=== PATIENT | male | born 1955 | race African-American/Black ===

== ENCOUNTER 2022-08-31 11:13 | Inpatient (IN) ==
[2022-08-31] MEDS ORDERED: LACTATED RINGERS 1,000 ML IV ONE (11:44)
[2022-08-31 12:08] LABS: Basophils # 0.1 10*3/uL (0.0-0.2); Basophils % 0.2 % (0.0-0.8); Hematocrit 39.4 VOL% (42.0-52.0); Hemoglobin 12.4 GM/DL (14.0-18.0); Immature Granulocytes % 7.8 %; Immature Granulocytes Absolute 1.61 #; Lymphocytes # 0.4 10*3/uL (1.4-4.0); Mean Corpuscular HGB Conc 31.5 GM/DL (32-36); Mean Platelet Volume 10.2 FL (9.6-12.0); Monocytes # 0.6 10*3/uL (0.11-0.8); Monocytes % 2.8 % (1.7-12.7); Neutrophils % 87.2 % (38.7-73.9); Platelet Count 159 T/CUMM (130-400); Red Blood Count 5.47 MC/CUMM (3.8-5.5); Red Cell Distribution Width 15.4 % (9.3-17.3); White Blood Count 20.8 T/CUMM (4-12)
[2022-08-31 12:16] LABS: Calcium 8.4 MG/DL (8.5-10.1); Osmolality,Calculated 295.4 MOS/KG (273-304); Total Protein 6.2 G/DL (6.4-8.2)
[2022-08-31] MEDS ORDERED: SODIUM CHLORIDE 0.9% 3,000 ML IV ONE (12:31)
[2022-08-31 13:01] LABS: Band Neutrophils 18 % (0-10); Eosinophils 1 % (0-10); Lymphocytes 1 % (20-55); Metamyelocytes 1 %; Total Cells Counted 100
[2022-08-31 13:06] LABS: Burr Cells Slight; Hypochromia 1+; Microcytosis 1+
[2022-08-31 13:07] LABS: Platelet Estimate Normal
[2022-08-31] MEDS ORDERED: PIPERACILLIN/TAZOBACTAM 3,375 MG in SODIUM CHLORIDE 0.9% 100 ML IV STA (13:47)
[2022-08-31 14:01] LABS: Glucose,Urine (UA) 100 mg/dL (Negative); Mucus,Urine Few /LPF (Occasional); Protein,Urine >=300 mg/dL (Negative); RBC,Urine 7 /HPF (0-4); Urine Appearance Cloudy (Clear); Urine Color Yellow (Yellow); Urine Specific Gravity >= 1.030 (1.001-1.035); Urine pH 5.5 (4.5-8.0)
[2022-08-31 14:02] LABS: Bilirubin,Urine Moderate mg/dL (Negative); Blood, Urine Large mg/dL (Negative); Ketones,Urine 15 mg/dL (Negative); Nitrite,Urine Negative (Negative)
[2022-08-31 14:31] LABS: Barbiturates Screen,Urine Negative (Negative); Benzodiazepines Screen,Urine Negative (Negative); Cannabinoid Screen,Urine Negative (Negative); Opiate Screen,Urine Negative (Negative); Phencyclidine Screen,Urine Negative (Negative)
[2022-08-31] MEDS ORDERED: GLUCAGON 1 MG VIAL IM PRN (15:33)
[2022-08-31] MEDS ORDERED: DEXTROSE 10% 250 ML BAG IV PRN ×2 (15:33→16:54)
[2022-08-31] MEDS ORDERED: ONDANSETRON 4 MG/2 ML VIAL IV PRN (15:33)
[2022-08-31] MEDS ORDERED: ACETAMINOPHEN 325 MG TABLET PO PRN (15:33)
[2022-08-31] MEDS ORDERED: LACTATED RINGERS 1,000 ML IV SCH (16:00)
[2022-08-31] MEDS: INSULIN LISPRO 100 UNIT/ML SUBCUT SCH (17:32)
[2022-08-31] MEDS ORDERED: PIPERACILLIN/TAZOBACTAM 3,375 MG in SODIUM CHLORIDE 0.9% 100 ML IV SCH (20:00)
[2022-08-31] MEDS: PIPERACILLIN/TAZOBACTAM 3,375 MG in SODIUM CHLORIDE 0.9% 100 ML IV SCH (21:13)
[2022-08-31] MEDS: ENOXAPARIN 40 MG/0.4 ML SYRINGE SUBCUT SCH (21:13)
[2022-08-31] MEDS ORDERED: ALBUTEROL/IPRATROPIUM 3 ML NEB RESP TX PRN (23:20)
[2022-08-31] MEDS ORDERED: FUROSEMIDE 20 MG/2 ML VIAL IV ONE (23:21)
[2022-09-01] MEDS: INSULIN LISPRO 100 UNIT/ML SUBCUT SCH ×4 (02:03→17:31)
[2022-09-01] MEDS: ALBUTEROL/IPRATROPIUM 3 ML NEB RESP TX SCH ×4 (03:45→23:59)
[2022-09-01] MEDS: PIPERACILLIN/TAZOBACTAM 3,375 MG in SODIUM CHLORIDE 0.9% 100 ML IV SCH ×3 (03:49→21:59)
[2022-09-01 05:25] LABS: Basophils # 0.1 10*3/uL (0.0-0.2); Basophils % 0.3 % (0.0-0.8); Eosinophils % 0.1 % (0.00-10.9); Hemoglobin 11.7 GM/DL (14.0-18.0); Immature Granulocytes % 0.8 %; Immature Granulocytes Absolute 0.17 #; Lymphocytes # 1.3 10*3/uL (1.4-4.0); Lymphocytes % 5.9 % (21.2-54.2); Mean Corpuscular HGB Conc 31.6 GM/DL (32-36); Mean Corpuscular Volume 71.4 FL (87-102); Mean Platelet Volume 11.7 FL (9.6-12.0); Monocytes % 4.5 % (1.7-12.7); Neutrophils % 88.4 % (38.7-73.9); Red Blood Count 5.18 MC/CUMM (3.8-5.5); Red Cell Distribution Width 15.3 % (9.3-17.3); White Blood Count 21.6 T/CUMM (4-12)
[2022-09-01 05:28] LABS: Platelet Count 120 T/CUMM (130-400)
[2022-09-01 05:34] LABS: Calcium 7.6 MG/DL (8.5-10.1); Osmolality,Calculated 289.8 MOS/KG (273-304); Potassium 3.6 MMOL/L (3.5-5.1)
[2022-09-01 06:00] LABS: Band Neutrophils 11 % (0-10); Lymphocytes 5 % (20-55); Metamyelocytes 2 %; Total Cells Counted 100
[2022-09-01 06:01] LABS: Hypochromia 1+; Microcytosis 1+
[2022-09-01 06:02] LABS: Ovalocytes Slight; Platelet Estimate Adequate
[2022-09-01] MEDS: carvediloL 3.125 MG TABLET PO SCH ×2 (08:07→17:52)
[2022-09-01] MEDS ORDERED: SODIUM BICARB INJ 50 MEQ in SODIUM CHLORIDE 0.45% 1,000 ML IV SCH (12:00)
[2022-09-01 12:25] LABS: % Iron Saturation 7.2 % (18-50)
[2022-09-01 12:33] LABS: Folate 9.31 NG/ML (5.38-24.0)
[2022-09-01] MEDS: SODIUM CHLORIDE 0.9% 1,000 ML IV SCH ×3 (12:37→22:00)
[2022-09-01] MEDS ORDERED: propofoL 200 MG/20 ML VIAL IV ONE (12:52)
[2022-09-01] MEDS ORDERED: LIDOCAINE 2% 5 ML VIAL ONE (12:52)
[2022-09-01] MEDS ORDERED: NEOMYCIN/POLYMYXIN IRRIG SOLN 1 ML AMP BLADDERIRR ONE (13:00)
[2022-09-01] MEDS ORDERED: ePHEDrine 50 MG/ML VIAL ONE ×2 (13:36→13:52)
[2022-09-01] MEDS ORDERED: SODIUM CHLORIDE 0.9% 1,000 ML IV ONE (13:40)
[2022-09-01] MEDS ORDERED: ONDANSETRON 4 MG/2 ML VIAL ONE (13:40)
[2022-09-01] MEDS ORDERED: SEVOFLURANE 1 UNIT/15 MINUTE INH ONE (13:40)
[2022-09-01] MEDS ORDERED: CALCIUM CHLORIDE 1,000 MG/10 ML VIAL IV ONE (13:41)
[2022-09-01] MEDS ORDERED: ePHEDrine 50 MG/ML VIAL IV ONE (14:05)
[2022-09-01] MEDS: ENOXAPARIN 40 MG/0.4 ML SYRINGE SUBCUT SCH (22:00)
[2022-09-02] MEDS: INSULIN LISPRO 100 UNIT/ML SUBCUT SCH ×4 (01:16→17:57)
[2022-09-02] MEDS: ALBUTEROL/IPRATROPIUM 3 ML NEB RESP TX SCH ×6 (03:10→23:00)
[2022-09-02] MEDS: PIPERACILLIN/TAZOBACTAM 3,375 MG in SODIUM CHLORIDE 0.9% 100 ML IV SCH ×3 (04:17→21:44)
[2022-09-02] MEDS: SODIUM CHLORIDE 0.9% 1,000 ML IV SCH ×3 (04:18→22:22)
[2022-09-02 05:57] LABS: Basophils % 0.2 % (0.0-0.8); Eosinophils # 0.1 10*3/uL (0.0-0.87); Eosinophils % 0.4 % (0.00-10.9); Hematocrit 34.9 VOL% (42.0-52.0); Hemoglobin 10.8 GM/DL (14.0-18.0); Immature Granulocytes % 0.8 %; Immature Granulocytes Absolute 0.13 #; Lymphocytes # 1.6 10*3/uL (1.4-4.0); Lymphocytes % 9.6 % (21.2-54.2); Mean Corpuscular HGB Conc 30.9 GM/DL (32-36); Mean Corpuscular Volume 71.8 FL (87-102); Mean Platelet Volume 10.9 FL (9.6-12.0); Monocytes % 6.1 % (1.7-12.7); Neutrophils % 82.9 % (38.7-73.9); Platelet Count 143 T/CUMM (130-400); Red Blood Count 4.86 MC/CUMM (3.8-5.5); Red Cell Distribution Width 15.1 % (9.3-17.3); White Blood Count 16.2 T/CUMM (4-12)
[2022-09-02 06:11] LABS: Calcium 8.2 MG/DL (8.5-10.1); Osmolality,Calculated 291.1 MOS/KG (273-304); Potassium 3.4 MMOL/L (3.5-5.1)
[2022-09-02 06:20] LABS: Cholesterol 85 MG/DL (50-200); HDL Cholesterol < 10 MG/DL (40-60); Triglycerides 396 MG/DL (2-150); VLDL Cholesterol 79.2 MG/DL
[2022-09-02 07:37] LABS: Band Neutrophils 4 % (0-10); Lymphocytes 12 % (20-55); Total Cells Counted 100
[2022-09-02 07:38] LABS: Burr Cells Slight; Hypochromia 1+; Microcytosis 1+; Ovalocytes Few; Target Cells Slight
[2022-09-02 07:39] LABS: Platelet Estimate Adequate
[2022-09-02] MEDS ORDERED: POTASSIUM CHLORIDE 20 MEQ TABLET PO ONE (10:12)
[2022-09-02] MEDS: carvediloL 3.125 MG TABLET PO SCH ×2 (10:19→17:56)
[2022-09-02] MEDS: CHOLECALCIFEROL 5,000 UNIT TABLET PO SCH (14:59)
[2022-09-02] MEDS ORDERED: SIMVASTATIN 10 MG TABLET PO SCH (17:00)
[2022-09-02] MEDS: SIMVASTATIN 10 MG TABLET PO SCH (17:57)
[2022-09-02] MEDS: ENOXAPARIN 40 MG/0.4 ML SYRINGE SUBCUT SCH (21:46)
[2022-09-03] MEDS: INSULIN LISPRO 100 UNIT/ML SUBCUT SCH ×4 (00:31→22:44)
[2022-09-03] MEDS: ALBUTEROL/IPRATROPIUM 3 ML NEB RESP TX SCH ×5 (03:00→18:49)
[2022-09-03] MEDS: PIPERACILLIN/TAZOBACTAM 3,375 MG in SODIUM CHLORIDE 0.9% 100 ML IV SCH ×2 (03:55→11:39)
[2022-09-03 05:31] LABS: Basophils # 0.1 10*3/uL (0.0-0.2); Basophils % 0.4 % (0.0-0.8); Eosinophils # 0.1 10*3/uL (0.0-0.87); Eosinophils % 0.9 % (0.00-10.9); Hematocrit 36.1 VOL% (42.0-52.0); Hemoglobin 11.5 GM/DL (14.0-18.0); Immature Granulocytes % 2.8 %; Immature Granulocytes Absolute 0.36 #; Mean Corpuscular HGB Conc 31.9 GM/DL (32-36); Mean Corpuscular Volume 70.1 FL (87-102); Mean Platelet Volume 11.3 FL (9.6-12.0); Monocytes # 1.2 10*3/uL (0.11-0.8); Monocytes % 9.6 % (1.7-12.7); Neutrophils % 70.3 % (38.7-73.9); Platelet Count 171 T/CUMM (130-400); Red Blood Count 5.15 MC/CUMM (3.8-5.5); Red Cell Distribution Width 15.1 % (9.3-17.3); White Blood Count 12.8 T/CUMM (4-12)
[2022-09-03 05:48] LABS: Calcium 8.5 MG/DL (8.5-10.1); Osmolality,Calculated 292.1 MOS/KG (273-304); Potassium 3.5 MMOL/L (3.5-5.1)
[2022-09-03] MEDS ORDERED: oxyCODONE/ACETAMINOPHEN 5-325 MG TABLET PO PRN (07:29)
[2022-09-03] MEDS: carvediloL 3.125 MG TABLET PO SCH ×2 (10:21→17:18)
[2022-09-03] MEDS: FERRIC GLUCONATE COMPLEX 125 MG in SODIUM CHLORIDE 0.9% 100 ML IV SCH (10:21)
[2022-09-03] MEDS: SODIUM CHLORIDE 0.9% 1,000 ML IV SCH ×3 (10:21→18:47)
[2022-09-03] MEDS: CHOLECALCIFEROL 5,000 UNIT TABLET PO SCH (10:21)
[2022-09-03] MEDS: ERTAPENEM 1,000 MG in SODIUM CHLORIDE 0.9% 100 ML IV SCH (17:18)
[2022-09-03] MEDS: SIMVASTATIN 10 MG TABLET PO SCH (17:18)
[2022-09-03] MEDS ORDERED: DIPHENOXYLATE/ATROPINE 2.5-0.025 MG TABLET PO PRN (20:36)
[2022-09-03] MEDS: ENOXAPARIN 40 MG/0.4 ML SYRINGE SUBCUT SCH (20:49)
[2022-09-04] MEDS: ALBUTEROL/IPRATROPIUM 3 ML NEB RESP TX SCH ×4 (00:11→19:20)
[2022-09-04] MEDS: INSULIN LISPRO 100 UNIT/ML SUBCUT SCH ×4 (01:12→18:38)
[2022-09-04] MEDS: SODIUM CHLORIDE 0.9% 1,000 ML IV SCH ×4 (01:20→22:22)
[2022-09-04 05:31] LABS: Basophils # 0.1 10*3/uL (0.0-0.2); Basophils % 0.7 % (0.0-0.8); Eosinophils # 0.1 10*3/uL (0.0-0.87); Eosinophils % 0.6 % (0.00-10.9); Hematocrit 36.3 VOL% (42.0-52.0); Hemoglobin 11.2 GM/DL (14.0-18.0); Immature Granulocytes % 5.3 %; Immature Granulocytes Absolute 0.85 #; Lymphocytes # 2.6 10*3/uL (1.4-4.0); Lymphocytes % 16.2 % (21.2-54.2); Mean Corpuscular HGB Conc 30.9 GM/DL (32-36); Mean Corpuscular Volume 71.7 FL (87-102); Mean Platelet Volume 10.2 FL (9.6-12.0); Monocytes # 1.3 10*3/uL (0.11-0.8); Monocytes % 8.2 % (1.7-12.7); Platelet Count 178 T/CUMM (130-400); Red Blood Count 5.06 MC/CUMM (3.8-5.5); Red Cell Distribution Width 15.3 % (9.3-17.3)
[2022-09-04 05:49] LABS: Calcium 8.2 MG/DL (8.5-10.1); Osmolality,Calculated 293.7 MOS/KG (273-304); Potassium 3.4 MMOL/L (3.5-5.1)
[2022-09-04 05:56] LABS: Band Neutrophils 1 % (0-10); Lymphocytes 21 % (20-55); Total Cells Counted 100
[2022-09-04 05:57] LABS: Hypochromia Slight; Microcytosis Slight; Ovalocytes Slight; Platelet Estimate Adequate
[2022-09-04] MEDS: POTASSIUM CHLORIDE 20 MEQ TABLET PO PRN ×3 (08:55→13:48)
[2022-09-04] MEDS: CHOLECALCIFEROL 5,000 UNIT TABLET PO SCH (08:55)
[2022-09-04] MEDS: carvediloL 3.125 MG TABLET PO SCH ×2 (08:55→16:43)
[2022-09-04] MEDS: FERRIC GLUCONATE COMPLEX 125 MG in SODIUM CHLORIDE 0.9% 100 ML IV SCH (09:32)
[2022-09-04] MEDS ORDERED: POTASSIUM CHLORIDE 20 MEQ TABLET PO PRN (12:08)
[2022-09-04] MEDS: ERTAPENEM 1,000 MG in SODIUM CHLORIDE 0.9% 100 ML IV SCH (15:39)
[2022-09-04] MEDS: SIMVASTATIN 10 MG TABLET PO SCH (16:43)
[2022-09-04] MEDS: ENOXAPARIN 40 MG/0.4 ML SYRINGE SUBCUT SCH (20:15)
[2022-09-05] MEDS: ALBUTEROL/IPRATROPIUM 3 ML NEB RESP TX SCH ×3 (00:35→07:45)
[2022-09-05] MEDS: INSULIN LISPRO 100 UNIT/ML SUBCUT SCH ×3 (01:10→12:34)
[2022-09-05 07:13] LABS: Basophils # 0.1 10*3/uL (0.0-0.2); Basophils % 0.5 % (0.0-0.8); Eosinophils # 0.2 10*3/uL (0.0-0.87); Eosinophils % 0.9 % (0.00-10.9); Hematocrit 33.7 VOL% (42.0-52.0); Hemoglobin 10.5 GM/DL (14.0-18.0); Immature Granulocytes % 6.3 %; Immature Granulocytes Absolute 1.15 #; Lymphocytes # 2.8 10*3/uL (1.4-4.0); Lymphocytes % 15.5 % (21.2-54.2); Mean Corpuscular HGB Conc 31.2 GM/DL (32-36); Mean Corpuscular Volume 72.6 FL (87-102); Mean Platelet Volume 10.6 FL (9.6-12.0); Monocytes # 1.2 10*3/uL (0.11-0.8); Monocytes % 6.5 % (1.7-12.7); Neutrophils % 70.3 % (38.7-73.9); Platelet Count 211 T/CUMM (130-400); Red Blood Count 4.64 MC/CUMM (3.8-5.5); Red Cell Distribution Width 15.8 % (9.3-17.3); White Blood Count 18.3 T/CUMM (4-12)
[2022-09-05 07:35] LABS: Band Neutrophils 8 % (0-10); Eosinophils 2 % (0-10); Hypochromia 1+; Lymphocytes 11 % (20-55); Target Cells Slight; Total Cells Counted 100
[2022-09-05 07:36] LABS: Microcytosis 1+; Ovalocytes Slight; Platelet Estimate Normal
[2022-09-05 07:39] LABS: Calcium 8.2 MG/DL (8.5-10.1); Osmolality,Calculated 290.7 MOS/KG (273-304); Potassium 3.4 MMOL/L (3.5-5.1)
[2022-09-05] MEDS: FERRIC GLUCONATE COMPLEX 125 MG in SODIUM CHLORIDE 0.9% 100 ML IV SCH (09:50)
[2022-09-05] MEDS: CHOLECALCIFEROL 5,000 UNIT TABLET PO SCH (09:51)
[2022-09-05] MEDS: carvediloL 3.125 MG TABLET PO SCH (09:52)
[2022-09-05 16:10] VITALS: BP 172/79
[2022-09-05] MEDS: SODIUM CHLORIDE 0.9% 1,000 ML IV SCH (16:41)
[2022-09-05] MEDS: ERTAPENEM 1,000 MG in SODIUM CHLORIDE 0.9% 100 ML IV SCH (16:42)
[2022-09-05] MEDS ORDERED: CHOLECALCIFEROL 5,000 UNIT TABLET PO SCH (21:00)
== END 2022-09-05 17:19 | disposition home health service (06) | DRG 854 ==
LOC: N.ED 11:13 → SUATTDRO 16:07 → N.EDINP 16:07 → N.3E 17:18
PROVIDERS: ADMIT Internal Medicine; ATTEND Internal Medicine